=== PATIENT | male | born 1980 | race Two or more races ===

== ENCOUNTER 2018-08-13 15:32 | Emergency (ER) | payer SELFPAY ==
[~2018-08-13] VITALS: Ht 182.9 cm; Wt 88.5 kg
[2018-08-13 16:04] VITALS: BP 150/99
--- NOTE | 2018-08-13 16:04 | NUR ---
ED Nurse Note: Pt brought in by RA 29 with SHIV d/t ALOC. Per EMS, pt was seen acting strange and being very confused. Pt also reported to be combative to the police. Pt also noted to be restless and very uncooperative. Screaming and yelling at nursing staff. No respiratory distress.
--- NOTE | 2018-08-13 16:04 | NUR ---
Note undone in EDM - 08/13/18 at 1655 by VITOR ED Nurse Note: Pt brought in by RA 29 with SHIV d/t combative behavior. Per EMS, pt was seen acting strange and being combative to the police. Pt also noted to be restless and very uncooperative. Screaming and yelling at nursing staff. No respiratory distress.
[2018-08-13] MEDS ORDERED: Haloperidol 5mg/ml Inj IM ONE (16:15)
[2018-08-13] MEDS ORDERED: LORazepam Inj 2mg/ml 1ml IM ONE (16:15)
[2018-08-13] MEDS ORDERED: DiphenhydrAMINE 50mg/ml Inj IM ONE (16:15)
--- NOTE | 2018-08-13 16:55 | NUR ---
ED Nurse Note: Blood/urine sent.
[2018-08-13 17:07] LABS: BASOPHILS % (AUTO) 1.7 % (0.0-2.0); EOSINOPHILS % (AUTO) 2.9 % (0.0-3.0); HEMATOCRIT 41.3 % (42.0-52.0); HEMOGLOBIN 13.7 G/DL (14.2-18.0); LYMPHOCYTES % (AUTO) 39.7 % (20.0-45.0); MEAN CORPUSCULAR VOLUME 90 FL (80-99); MONOCYTES % (AUTO) 8.2 % (1.0-10.0); NEUTROPHILS % (AUTO) 47.4 % (45.0-75.0); PLATELET COUNT 246 K/UL (150-450); RED BLOOD COUNT 4.58 M/UL (4.70-6.10); WHITE BLOOD COUNT 4.9 K/UL (4.8-10.8)
[2018-08-13 17:27] LABS: ANION GAP 11 mmol/L (5-15); BLOOD UREA NITROGEN 7 mg/dL (7-18); CALCIUM 8.1 MG/DL (8.5-10.1); CARBON DIOXIDE 24 MMOL/L (21-32); CHLORIDE 108 MMOL/L (98-107); CREATININE 0.7 MG/DL (0.55-1.30); POTASSIUM 3.7 MMOL/L (3.5-5.1); SODIUM 143 MMOL/L (136-145)
[2018-08-13 17:31] LABS: ALANINE AMINOTRANSFERASE 48 U/L (12-78); ALBUMIN 3.5 G/DL (3.4-5.0); ALBUMIN/GLOBULIN RATIO 1.1 (1.0-2.7); ALKALINE PHOSPHATASE 65 U/L (46-116); ASPARTATE AMINO TRANSFERASE 31 U/L (15-37); BILIRUBIN,TOTAL 0.1 MG/DL (0.2-1.0)
[2018-08-13 18:30] VITALS: BP 155/87
--- NOTE | 2018-08-13 18:31 | NUR ---
ED Nurse Note: Pt is sleeping at this time. No acute distress. Will re-assess later when sober.
--- NOTE | 2018-08-13 19:12 | NUR ---
HAND-OFF: Report given to sanju POTTER.
--- NOTE | 2018-08-13 19:13 | NUR ---
ED Nurse Note: Report received from ABBEY Mark. Pt currently sleeping. VSS. Will continue to monitor.
--- NOTE | 2018-08-13 22:00 | NUR ---
ED Nurse Note: Pt resting comfortably. SHowing no signs of distress. VSS.
--- NOTE | 2018-08-13 22:05 | Emergency Room Report ---
History of Present Illness General Chief Complaint: Altered Level of Consciousness Source: Patient (Ramakrishna Chew MD) Present Illness HPI 38-year-old male presents ED for evaluation. Brought in by EMS for behavioral disturbance. Found on the street agitated and screaming and combative. Was given Versed in the field. Patient still agitated and screaming on arrival. In handcuffs. Patient unwilling to provide any additional history at this time. No other aggravating relieving factors. No other associated symptoms (Ramakrishna Chew MD) Allergies: Coded Allergies: No Known Allergies (Unverified , 08/13/18) Patient History Past Surgical History: none Pertinent Family History: none Social History: Reports: alcohol use, drug use; Denies: smoking Immunizations: UTD Reviewed Nursing Documentation: PMH: Agreed; PSxH: Agreed (Ramakrishna Chew MD) Review of Systems All Other Systems: negative except mentioned in HPI (Ramakrishna Chew MD) Physical Exam Vital Signs Date Time Temp Pulse Resp B/P (MAP) Pulse Ox O2 Delivery O2 Flow Rate FiO2 08/13/18 15:54 98.1 95 22 98 Room Air 08/13/18 16:04 150/99 Sp02 EP Interpretation: reviewed, normal General Appearance: alert, mild distress, other - agitated/cmbative Head: normocephalic Eyes: bilateral eye normal inspection, bilateral eye PERRL ENT: normal ENT inspection Neck: normal inspection Respiratory: chest non-tender, lungs clear, normal breath sounds, speaking full sentences Cardiovascular #1: regular rate, rhythm, no edema Gastrointestinal: normal bowel sounds, non tender, soft, non-distended, no guarding, no rebound Rectal: deferred Genitourinary: no CVA tenderness Musculoskeletal: normal inspection Neurologic: other - agitated/combative Psychiatric: other - combative Skin: normal inspection Lymphatic: normal inspection (Ramakrishna Chew MD) Medical Decision Making Diagnostic Impression: Primary Impression: Alcohol intoxication Qualified Codes: F10.920 - Alcohol use, unspecified with intoxication, uncomplicated Labs Test 08/13/18 16:40 08/13/18 16:50 Urine Opiates Screen Negative (NEGATIVE) Urine Barbiturates Screen Negative (NEGATIVE) Phencyclidine (PCP) Screen Negative (NEGATIVE) Urine Amphetamines Screen Negative (NEGATIVE) Urine Benzodiazepines Screen Positive (NEGATIVE) Urine Cocaine Screen Negative (NEGATIVE) Urine Marijuana (THC) Screen Negative (NEGATIVE) White Blood Count 4.9 K/UL (4.8-10.8) Red Blood Count 4.58 M/UL (4.70-6.10) Hemoglobin 13.7 G/DL (14.2-18.0) Hematocrit 41.3 % (42.0-52.0) Mean Corpuscular Volume 90 FL (80-99) Mean Corpuscular Hemoglobin 29.8 PG (27.0-31.0) Mean Corpuscular Hemoglobin Concent 33.1 G/DL (32.0-36.0) Red Cell Distribution Width 12.0 % (11.6-14.8) Platelet Count 246 K/UL (150-450) Mean Platelet Volume 4.7 FL (6.5-10.1) Neutrophils (%) (Auto) 47.4 % (45.0-75.0) Lymphocytes (%) (Auto) 39.7 % (20.0-45.0) Monocytes (%) (Auto) 8.2 % (1.0-10.0) Eosinophils (%) (Auto) 2.9 % (0.0-3.0) Basophils (%) (Auto) 1.7 % (0.0-2.0) Sodium Level 143 MMOL/L (136-145) Potassium Level 3.7 MMOL/L (3.5-5.1) Chloride Level 108 MMOL/L (98-107) Carbon Dioxide Level 24 MMOL/L (21-32) Anion Gap 11 mmol/L (5-15) Blood Urea Nitrogen 7 mg/dL (7-18) Creatinine 0.7 MG/DL (0.55-1.30) Estimat Glomerular Filtration Rate > 60 mL/min (>60) Glucose Level 108 MG/DL (74-106) Calcium Level 8.1 MG/DL (8.5-10.1) Total Bilirubin 0.1 MG/DL (0.2-1.0) Aspartate Amino Transf (AST/SGOT) 31 U/L (15-37) Alanine Aminotransferase (ALT/SGPT) 48 U/L (12-78) Alkaline Phosphatase 65 U/L (46-116) Total Protein 6.8 G/DL (6.4-8.2) Albumin 3.5 G/DL (3.4-5.0) Globulin 3.3 g/dL Albumin/Globulin Ratio 1.1 (1.0-2.7) Salicylates Level 1.8 ug/mL (2.8-20) Acetaminophen Level < 2 MCG/ML (10-30) Serum Alcohol 262 mg/dL (Ramakrishna Chew MD) ER Course Patient signout to me. He presents with altered mental status and very aggressive and combative secondary to alcohol intoxication. He was sedated. Patient is now awake and was to go home. He is not homeless. He is not suicidal or homicidal. No criteria for 5150. We'll discharge home. (Thanh Moya MD) Last Vital Signs Date Time Temp Pulse Resp B/P (MAP) Pulse Ox O2 Delivery O2 Flow Rate FiO2 08/13/18 18:30 97.9 90 16 155/87 100 Room Air (Ramakrishna Chew MD) Status: improved (Thanh Moya MD) Disposition: HOME, SELF-CARE Condition: Stable Referrals: NOT CHOSEN IPA/,REFERRING (PCP) Additional Instructions: Abstain from drinking to excess. Follow-up with your doctor in 7 days. Return if worse. Ramakrishna Chew MD August 13, 2018 22:05 Thanh Moya MD August 13, 2018 22:51
[2018-08-13 23:00] VITALS: BP 135/69
--- NOTE | 2018-08-13 23:00 | NUR ---
ED Nurse Note: Pt cleared by MD. Discharge paperwork provided. All belongings taken with patient. Pt refused to sign discharge instructions and paperwork. VSS. Pt ambulated out of ED with steady gait.
== END 2018-08-13 23:00 | disposition home or self-care (01) ==
LOC: EDBD 15:32 → EMR 18:23
DX: F10.920 Alcohol use, unspecified with intoxication, uncomplicated (principal)
CPT/HCPCS: 36415; 80053; 80307; 85025; 96372; 99283; G0480; J1200; J1630; 80329